=== PATIENT | male | born 1990 | race Caucasian/White ===

== ENCOUNTER 2017-11-10 18:00 | Outpatient (RCR) | payer OTHER, SELFPAY ==
--- NOTE | 2017-06-28 07:45 | HP.PTEVAL_ITS ---
Patient's Visit Information PRINCESS CARDENAS is a 27 year old M referred to Physical Therapy by DINA KINGSTON with a diagnosis of R hip labral repair. Date of Evaluation: 06/28/17 Physical Therapist: Trenton Bernard - Visit Plan Frequency: 2-3x /Week Duration: 12 weeks Plan: Start with bike, STM to rectus femoris/iliopsoas/glute med/piriformis/hip adductors, PROM, isometrics, NMES with SAQ, gait progression. Follow and progress per protocol. - Subjective Subjective: Pt. is here today for his initial evaluation with diagnosis of R hip larbal repair, osteoplasty. DOS 06/24/17. Pt. 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 Pt. reports being treated for lumbar disc herniations, and hip strengthening to no relief, finally resulting in hip labral repair. Pt. arrives today with cructches, applying minimal wt. through his RLE with hip TROm brace on limited to 90deg of flexion. Pt. reports trying to use game ready ice/vaso, but unbale to get it to work. Pt. denies N/T in either LE. Pt. was able to sleep in reclining chair last night, was unable to lie flat. Pt. has reports being very tired as he got back home from hospital last night. Pt. is hopeful to get back to all recreational activities including running, skiing, playing basketball and other sports without limitations. - Pain R anterior hip Pain Intensity (Out of 10): 4 Pain Intensity Range: 4, 8 - Objective POSTURE: Pt. is able to stand with minimal wt. shift to R side, general flexed posture with use of crutches. Pt. wt. shifts to L side while sitting as well. PALPATION: pt. has increased tenderness at psoas, rectus femoris, glute medius, and hip adductors. Pt. has incision covered, to keep on until tomorrow. NEUROLOGICAL: Pt. has normal sensation throughout bilateral LEs. Pt. has 2+ achilles and patellar DTR bilaterally. ROM: L hip- full ROM without increase in symptoms. R Hip- flexion 60deg increase NW, abd 30deg increase NW, ext neutral increase NW, ER 10deg increase NW, did not test IR. MMT: LLE 5/5 throughout; RLE- ankle 5/5 throughout; did not test knee or hip on R side secondary to surgery. GAIT: Pt. has normal gait pattern with crutches, but does ambulate with NWB on RLE. Pt. is able to negotiate 3 steps with 1 HR and crutches ZAIRE. - Goals Goal 1:: Pt. to be I with HEP. Goal Time Frame: 2 Weeks Goal 2:: Pt. to have increased R hip ROM to full without increase in symptoms. Goal Time Frame: 4-6 Weeks Goal 3:: Pt. to hve increased R hip/core strength to 4/5 to reduce stress applied to R hip with all functional mobility. Goal Time Frame: 6-8 Weeks Goal 4:: Pt. to sleep throughout the night without increase in symptoms. Goal Time Frame: 2-4 Weeks Goal 5:: Pt. ambulate with no AD without increase in symptoms. Goal Time Frame: 2-4 Weeks Goal 6:: Pt. to negotiate steps with proper pattern and control without increase in symptoms. Goal Time Frame: 2-4 Weeks - Rehabilitation Potential Physical Therapy Diagnosis: Pt. has signs and symptoms consistent with R hip labral repair with subsequent hypomobility, weakness, gait difficulty, and increased pain. Pt. would benefit from PT to address above limitations progressing back to recreational and work activities without limitations. Rehabilitation Potential: Excellent - Anticipated Interventions Patient/Client Instruction: Educate patient on: Condition, Plan of Care, Risk Factors, Benefits of Fitness Program For the Purpose of:: To improve decision making, To facilitate caregiver knowledge, To improve self management, To prevent re-injury, To improve ability to perform tasks related to life management, To improve tolerance to ADL's Therapeutic Exercise to Include: Strength training, Power training, Endurance training, Balance training, Agility training, Body mechanics, Postural training , Flexibilty training, Gait and locomotor training, Passive ROM, Active ROM, Dynamic Lumbar Stabilization For the Purpose of:: To decrease pain, To decrease swelling/inflammation, To increase ROM, To improve nutrient delivery to tissue, To increase oxygenation perfusion, To improve muscle performance and motor function, To improve ability to perform ADL's, To increase tolerance to activity/condition/position, To improve performance and independence with ADL's, To improve ability of physical actions for home/community/work/leisure, To improve gait and locomotor functions , To improve health of tissue, To decrease soft tissue restriction Manual Therapy Techniques to Include: Trigger point massage, Massage, Scar massage, Passive ROM For the Purpose of:: To decrease pain, To decrease swelling/inflammation, To increase ROM, To improve nutrient delivery to tissue, To increase oxygenation perfusion, To improve muscle performance and motor function IF ES: Yes Other electric stimulation: Yes - NMES quad activation Cryotherapy (ice pack, ice massage): Yes For the Purpose of:: To decrease pain, To decrease swelling/inflammation, To increase ROM, To improve nutrient delivery to tissue, To increase oxygenation perfusion, To improve muscle performance and motor function Thank you for the opportunity to evaluate your patient. For Medicare and Medicare HMO plans, please review the plan of care and approve it. It will need to be FAXED BACK to us at [phone] for Medicare purposes. Please let me know if there are questions or concerns regarding this plan of care. Physician Signature: Date:
--- NOTE | 2017-08-20 08:59 | HP.PTREVAL_ITS ---
DINA MARIN, It has been my pleasure to treat PRINCESS CARDENAS over the last 18 visits for R hip labral repair. Please see the progress note below for an update on the physical therapy plan of care! Subjective: Pt. reports I am doing much better. He is to follow up with his physician next week. Pt. reports being compliant with all stretching and walking progression. Objective/Function: R hip ROM- flexion 120deg mild pinching at end range, ext 20deg tightness noted, abd 45deg NE, ER 90deg tightness noted, IR 30deg mild increase NW. MMT- RLE- ankle 5/5 throughout; knee- ext 5/5, flexion 5/5; hip- flexion 4/5, abd 4/5, ext 4/5. Pt. has mild increase NW with hip flexion testing. GAIT: Pt. is able to ambulate with improved pattern, no antalgic pattern. Pt. reports no pain with walking. He has increased tempo. STARIS: Pt. is able to negotiate with reciporcal pattern without LOB or increase in symptoms. Plan Plan: Requesting extension of POC x2 per week for 4-6 weeks to progress strength and stability exsercises. Pt. was slightly delayed with progression of strenthening due to having increased anterior hip pain. Focused on stretching and deep tissue manual work and had good progress to now. He is now painfree and ready to progress further per protocol from physician. Goals Goal 1:: Pt. to be I with HEP. Goal Time Frame: 2 Weeks Goal Progress: Goal Met Goal 2:: Pt. to have increased R hip ROM to full without increase in symptoms. Goal Time Frame: 4-6 Weeks Goal Progress: Goal Met Goal 3:: Pt. to hve increased R hip/core strength to 4/5 to reduce stress applied to R hip with all functional mobility. NEW GOAL: progress strength to 5 /5 throughout R hip and core musculature to increase stability and reduce risk for future injuries. Goal Time Frame: 6-8 Weeks Goal Progress: Progressing Goal 4:: Pt. to sleep throughout the night without increase in symptoms. Goal Time Frame: 2-4 Weeks Goal Progress: Goal Met Goal 5:: Pt. ambulate with no AD without increase in symptoms. Goal Time Frame: 2-4 Weeks Goal Progress: Goal Met Goal 6:: Pt. to negotiate steps with proper pattern and control without increase in symptoms. Goal Time Frame: 2-4 Weeks Goal Progress: Goal Met Anticipated Interventions Patient/Client Instruction: Educate patient on: Condition, Plan of Care, Risk Factors, Benefits of Fitness Program For the Purpose of:: To improve decision making, To facilitate caregiver knowledge, To improve self management, To prevent re-injury, To improve ability to perform tasks related to life management, To improve tolerance to ADL's Therapeutic Exercise to Include: Strength training, Power training, Endurance training, Balance training, Agility training, Body mechanics, Postural training , Flexibilty training, Gait and locomotor training, Passive ROM, Active ROM, Dynamic Lumbar Stabilization For the Purpose of:: To decrease pain, To decrease swelling/inflammation, To increase ROM, To improve nutrient delivery to tissue, To increase oxygenation perfusion, To improve muscle performance and motor function, To improve ability to perform ADL's, To increase tolerance to activity/condition/position, To improve performance and independence with ADL's, To improve ability of physical actions for home/community/work/leisure, To improve gait and locomotor functions , To improve health of tissue, To decrease soft tissue restriction Manual Therapy Techniques to Include: Trigger point massage, Massage, Scar massage, Passive ROM For the Purpose of:: To decrease pain, To decrease swelling/inflammation, To increase ROM, To improve nutrient delivery to tissue, To increase oxygenation perfusion, To improve muscle performance and motor function IF ES: Yes Other electric stimulation: Yes - NMES quad activation Cryotherapy (ice pack, ice massage): Yes For the Purpose of:: To decrease pain, To decrease swelling/inflammation, To increase ROM, To improve nutrient delivery to tissue, To increase oxygenation perfusion, To improve muscle performance and motor function Please do not hesitate to contact me at [phone] by phone or Fax: if you have questions or concerns regarding this new plan of care! Sincerely, Trenton Bernard
--- NOTE | 2017-08-26 11:12 | HP.PTREVAL_ITS ---
DINA MARIN, It has been my pleasure to treat PRINCESS CARDENAS over the last 19 visits for R hip labral repair. Please see the progress note below for an update on the physical therapy plan of care! Subjective: Pt. reports I am doing much better. I saw the doctor today and they were pleased with my motion. They want me to start with strengthening again, but to ease into it. He reports overall being 75% better overall. He reports no pain with walking or with HEP. Objective/Function: Pt. is ambulating without AD, he has started a walking progression program to increase tolerance. He is still to refrain from impact movements. Pt. reports no pain with walking. STAIRS: Pt. negotiates with normal pattern withou use of HR to complete. No pain noted. ROM: hip- flexion 120deg mild pinching, ext 20deg NE, abd 50deg NE, ER 88deg mild soreness, IR 30deg mild pinching feeling. MMT: RLE- ankle 5/5 throughout; knee- ext 4+/5, flexion 4+/5; hip- flexion 4/5 mild increase NW, abd 4/5, ext 4/5. Core strength fair-. Plan Plan: Asking for extended POC x2 week for another 4 weeks to progress strengthening per protocol. Pt. was slightly delayed per protocol secondary to increased pain with strengthening. Held and focused on stretching and has improved. pt. would benefit from weaing into strengthening phase at this point in time. Goals Goal 1:: Pt. to be I with HEP. Goal Time Frame: 2 Weeks Goal Progress: Goal Met Goal 2:: Pt. to have increased R hip ROM to full without increase in symptoms. Goal Time Frame: 4-6 Weeks Goal Progress: Goal Met Goal 3:: Pt. to hve increased R hip/core strength to 4/5 to reduce stress applied to R hip with all functional mobility. NEW GOAL: progress strength to 5 /5 throughout R hip and core musculature to increase stability and reduce risk for future injuries. Goal Time Frame: 6-8 Weeks Goal Progress: Progressing Goal 4:: Pt. to sleep throughout the night without increase in symptoms. Goal Time Frame: 2-4 Weeks Goal Progress: Goal Met Goal 5:: Pt. ambulate with no AD without increase in symptoms. Goal Time Frame: 2-4 Weeks Goal Progress: Goal Met Goal 6:: Pt. to negotiate steps with proper pattern and control without increase in symptoms. Goal Time Frame: 2-4 Weeks Goal Progress: Goal Met Anticipated Interventions Patient/Client Instruction: Educate patient on: Condition, Plan of Care, Risk Factors, Benefits of Fitness Program For the Purpose of:: To improve decision making, To facilitate caregiver knowledge, To improve self management, To prevent re-injury, To improve ability to perform tasks related to life management, To improve tolerance to ADL's Therapeutic Exercise to Include: Strength training, Power training, Endurance training, Balance training, Agility training, Body mechanics, Postural training , Flexibilty training, Gait and locomotor training, Passive ROM, Active ROM, Dynamic Lumbar Stabilization For the Purpose of:: To decrease pain, To decrease swelling/inflammation, To increase ROM, To improve nutrient delivery to tissue, To increase oxygenation perfusion, To improve muscle performance and motor function, To improve ability to perform ADL's, To increase tolerance to activity/condition/position, To improve performance and independence with ADL's, To improve ability of physical actions for home/community/work/leisure, To improve gait and locomotor functions , To improve health of tissue, To decrease soft tissue restriction Manual Therapy Techniques to Include: Trigger point massage, Massage, Scar massage, Passive ROM For the Purpose of:: To decrease pain, To decrease swelling/inflammation, To increase ROM, To improve nutrient delivery to tissue, To increase oxygenation perfusion, To improve muscle performance and motor function IF ES: Yes Other electric stimulation: Yes - NMES quad activation Cryotherapy (ice pack, ice massage): Yes For the Purpose of:: To decrease pain, To decrease swelling/inflammation, To increase ROM, To improve nutrient delivery to tissue, To increase oxygenation perfusion, To improve muscle performance and motor function Please do not hesitate to contact me at [phone] by phone or Fax: if you have questions or concerns regarding this new plan of care! Sincerely, Trenton Bernard
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
== END 2017-11-10 19:00 | disposition home or self-care (01) ==
LOC: PT 18:00
DX: M25.551 Pain in right hip (principal)
CPT/HCPCS: 97012; 97014; 97110; 97140; 97161; 97530; G0283; G8978; G8979

== ENCOUNTER 2021-04-05 12:11 | Emergency (ER) | payer OTHER, SELFPAY ==
[2021-04-05 12:12] VITALS: BP 146/95; PULSE 72; RESP 16; TEMP 36.3; O2SAT 99; BMI 19.0
--- NOTE | 2021-04-05 12:55 | CT_ITS ---
STUDY: MRA OF THE HEAD WITHOUT CONTRAST REASON FOR EXAM: Male, 30 years old. headache. headache TECHNIQUE: 3-D [id number] (TOF) imaging was performed with MIPs. The study was performed unenhanced. COMPARISON: None. FINDINGS: Patent right cavernous carotid artery. Patent left cavernous carotid artery. Patent right A1 segments of the anterior cerebral artery. Patent left A1 segments of the anterior cerebral artery. Unremarkable anterior communicating artery (ACOM) region. Normal bilateral A2 segments of the anterior cerebral arteries. Patent right M1 and M2 segments of the middle cerebral arteries, with a unremarkable M1 bifurcation. Patent left M1 and M2 segments of the middle cerebral arteries, with a unremarkable M1 bifurcation. There is non-visualization of the right posterior communicating artery (PCOM). 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 Patent basilar artery with a normal basilar bifurcation. Patent bilateral posterior cerebral arteries. STUDY: CT BRAIN WITHOUT CONTRAST Normal size ventricles and extra-axial spaces for the patient''s age. There is no intracranial hemorrhage. There are no findings of an acute ischemic infarction. CT/CTA Head W/WO Contrast IMPRESSION: No no demonstrated large vessel occlusion or aneurysm. Electronically Signed: Gilbert Buenrostro MD at 13:43 EST Tel , Service support ,
[2021-04-05] MEDS: 0.9% Normal Saline 1,000 ML 999 ML IV (13:21)
[2021-04-05] MEDS: DiphenhydrAMINE 50 MG/ML Syringe 25 MG IV (13:21)
[2021-04-05] MEDS: Metoclopramide 10 MG/2 ML Vial IV (13:21)
--- NOTE | 2021-04-05 13:25 | EX.ED.DYSGE1 ---
HPI History of Present Illness Chief Complaint: Numb/Ting Narrative Narrative: Patient presents with headache. Before the headache he had an aura of feeling dizzy and then having some numbness on the left side of the face and hand. He has similar episode a few months ago but otherwise he has not had a history of migraines. The headache that started today was gradual onset, it was not sudden. Currently there is no vision changes but there is some photophobia. No neck pain or stiffness. No fevers or chills. No trauma. No weakness or paresthesias currently. [facility] Medical History Bulging lumbar disc Labral tear of right hip joint Right bundle branch block Home Medications NK 04/05/21 [History Last Taken Unknown] Allergy/AdvReac Type Severity Reaction Status Date / Time No Known Allergies Allergy Verified 04/05/21 12:23 Social History Smoking Status: Never smoker ROS ROS ED ROS Narrative Past medical history: Reviewed Medications: Reviewed Social history: Noncontributory Review of systems: All systems negative except as indicated General: No fever Eyes: No visual changes ENT: No upper airway congestion, normal voice Neck: No neck pain Cardiovascular: No chest pain Respiratory: No shortness of breath or cough Gastrointestinal: No abdominal pain, nausea vomiting or diarrhea Genitourinary: No dysuria Musculoskeletal: Denies myalgias no difficulty with ambulation Skin: No rash Neurological: No memory loss, confusion or any focal weakness. Headache as in HPI Psych: No recent behavioral changes Hematologic: No easy bleeding or easy bruising EXAM Physical Exam Narrative Exam Narrative: Physical exam General: Patient appears relatively comfortable. Head: Normocephalic, Atraumatic Eyes: Conjunctiva not pale ENT: Moist mucous membranes Neck: Supple, Nontender, No lymphadenopathy Cardiovascular: Regular rate, Regular rhythm Respiratory: No distress, CTA bilaterally Abdomen: Soft, Nontender, Nondistended Back: Nontender, Normal Inspection. Negative for: CVA tenderness Extremities: Nontender, No edema Skin: Normal color, No rash Neurological: Alert, Normal Strength, Normal Sensation Psychological: Normal affect Const Vital Signs: 04/05/21 12:12 04/05/21 15:00 Temperature 97.3 F L Temperature Source Temporal Pulse Rate 72 Respiratory Rate 16 18 Blood Pressure 146/95 H Blood Pressure Mean 112 Pulse Ox 99 Oxygen Delivery Method Room Air MDM MDM Radiography Diagnostic Testing: Clinical Impression(s) from Imaging Studies Head CTA 04/05/21 12:55 IMPRESSION: No no demonstrated large vessel occlusion or aneurysm. Electronically Signed: Gilbert Buenrostro MD at 13:43 EST Tel , Service support , Discharge Plan Triage Chief Complaint: Numb/Ting ED Provider: Tao Bosch Dx/Rx/DC Orders Clinical Impression: Headache, Aura Instructions: Understanding Headache Pain Prescriptions: No Action NK RF: 0 [facility] Care Provider: [facility] Referrals: [facility] [Primary Care Provider] - 2 Days Disposition Disposition: Home, Self Care
[2021-04-05 15:00] VITALS: RESP 18
[2021-04-05 15:34] VITALS: BP 108/67; PULSE 71; RESP 15; O2SAT 99
== END 2021-04-05 15:34 | disposition home or self-care (01) ==
PROVIDERS: Emergency Provider Emergency Medicine
DX: R51.9 Headache, unspecified (principal); R42 Dizziness and giddiness; R20.0 Anesthesia of skin
CPT/HCPCS: 70496; 96361; 96374; 96375; 99282; J7030; Q9967; A4216

== ENCOUNTER 2021-06-27 09:00 | Outpatient (RCR) | payer OTHER, SELFPAY ==
--- NOTE | 2021-02-07 14:00 | HP.PTEVAL ---
Patient's Visit Information PRINCESS CARDENAS is a 30 year old M referred to Physical Therapy by [facility] with a diagnosis of R hip pain S/p Arthroscopic clean up scar tissue. Date of Evaluation: 02/07/21 Physical Therapist: MARYURI Hernandez - Visit Plan Frequency: 2-3x /Week Duration: 5 weeks Plan: 2-3X/ week for 15 visits R hip AROM, AAROM, light stretching, strengthening, gait training, functional activities such as step, increase proprioception with HEP. HEP: GS, Heels slides, QS, ankle pumps - Subjective Pt had a R hip labral repair June 2016.... 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 MRI and thought it was torn but then a new surgeon thought it was old scar tissue, In Surgery they cleaned up scar tissue and it was attached to the labrum and making him feel like his labrum was tearing again. He had surgery yesterday. He is supposed to be active as he can and he needs his incision to heal up. Once he is ready he is able to put full weight on it. Pt reports that he has not put much pressure through his R leg and still using the crutches so he can not rate his pain in WB. He has 2 steps without a railing though the garage and just uses crutches. His bed is on first floor. No plans on return to work. - Pain R hip pain Pain Intensity (Out of 10): 5 Pain Intensity Range: 5 - Objective Gait: Walks with 2 crutches with decrease weight bearing on the R LE. LE MMT: R knee ext 3-/5,. L knee ext 4+/5,. R knee flexion 3-. L knee flexion4+. MMT of the R hip was not tested. Sit to stand pt need UE to help get to standing. Pt needed to use his UE to help get his R leg up onto the mat table. R knee flexion 100 degrees. R hip flexion to 70 degrees. Pt has increased pain with sitting... feels like it is pinching him in the groin. At the end of the session pt was able to walk with 2 crutches with increase WB on the R LE with heel to toe gait pattern. - Balance/Special Test Scores Lower Extremity Functional Score: 3 - Goals Goal 1:: I HEP Goal Time Frame: 4-6 Weeks Goal 2:: Be able to walk without AD with normal gait pattern Goal Time Frame: 4-6 Weeks Goal 3:: Be able to go up and down the steps recip with no hand railing with no antalgic gait. Goal Time Frame: 4-6 Weeks Goal 4:: Increase R hip strength (flex and abd, and ext) to 4/5 Goal Time Frame: 4-6 Weeks Goal 5:: Demonstrate 120 degrees R hip flex and 30 degrees hip ext by D/C painfree Goal Time Frame: 4-6 Weeks - Rehabilitation Potential Rehabilitation Potential: Good - Anticipated Interventions Patient/Client Instruction: Educate patient on: Condition, Plan of Care For the Purpose of:: To decrease pain, To increase ROM, To improve nutrient delivery to tissue, To improve muscle performance and motor function, To improve ability to perform ADL's, To increase tolerance to activity/condition/position, To improve performance and independence with ADL's, To decrease level of supervision to perform tasks, To improve ability of physical actions for home/community/work/leisure, To improve gait and locomotor functions, To improve health of tissue, To decrease soft tissue restriction, To increase flexibility/ROM, To improve endurance, To improve balance Therapeutic Exercise to Include: Strength training, Endurance training, Balance training, Body mechanics, Postural training, Flexibilty training, Gait and locomotor training, Neuromotor development, Passive ROM, Active ROM, Dynamic Lumbar Stabilization For the Purpose of:: To decrease pain, To decrease swelling/inflammation, To increase ROM, To improve nutrient delivery to tissue, To improve muscle performance and motor function, To improve ability to perform ADL's, To increase tolerance to activity/condition/position, To improve performance and independence with ADL's, To decrease level of supervision to perform tasks, To improve ability of physical actions for home/community/work/leisure, To improve gait and locomotor functions, To improve health of tissue, To decrease soft tissue restriction, To increase flexibility/ROM, To improve endurance, To improve balance, To improve safety with gait Functional Training to Include: Gait training For the Purpose of:: To improve gait and locomotor functions Manual Therapy Techniques to Include: Passive ROM For the Purpose of:: To increase ROM Thank you for the opportunity to evaluate your patient. For Medicare and Medicare HMO plans, please review the plan of care and approve it. It will need to be FAXED BACK to us at [phone] for Medicare purposes. For Medicare only, by signing this I certify the plan of care. Please let me know if there are questions or concerns regarding this plan of care. Physician Signature: Date:
--- NOTE | 2021-03-18 07:54 | HP.PTREVAL_ITS ---
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 Please see the progress note below for an update on the physical therapy plan of care! Subjective: Pt reports that going up stairs is still hard due to catching in the hip joint. Squatting increases pressure in his Quad. Objective/Function: Gait: walks with normal gait pattern\. Walks with high knees... very cautious with movement into hip flex on the R with each rep. Stairs: up and down recip with 1 hand rail wtih complaints of tightness of R Quad. SLB 30 second on the R. SLB with knee bent 30 seconds but increase complaint of tightness at 20 seconds. MMT: R hip flex 4-/5 (with shooting pain in his groin), R hip abd 4/5, hip ext 5/5, knee flex and ext 4+/5. 114 degrees R hip flexion (increase pinching of the R groin). After SKC holding 5 sec X 20 pt was stiff extending his leg Plan Plan: Ask for additional visits. 2-3 X/ week for improving R hip flexion ROM, hip flex strengthening and hip strength in general, stretching with HEP. Pt to also continue with HEP Balance/Gait/Functional tests - Balance/Special Test Scores Lower Extremity Functional Score: 33 Goals Goal 1:: I HEP Goal Time Frame: 4-6 Weeks Goal Progress: Goal Met Goal 2:: Be able to walk without AD with normal gait pattern Goal Time Frame: 4-6 Weeks Goal Progress: Goal Met Goal 3:: Be able to go up and down the steps recip with no hand railing with no antalgic gait. Goal Time Frame: 4-6 Weeks Goal Progress: Goal Met Goal 4:: Increase R hip strength (flex and abd, and ext) to 4/5 Goal Time Frame: 4-6 Weeks Goal Progress: Progressing Goal 5:: Demonstrate 120 degrees R hip flex and 30 degrees hip ext by D/C painfree Goal Time Frame: 4-6 Weeks Goal Progress: Progressing Anticipated Interventions Patient/Client Instruction: Educate patient on: Condition, Plan of Care For the Purpose of:: To decrease pain, To increase ROM, To improve nutrient delivery to tissue, To improve muscle performance and motor function, To improve ability to perform ADL's, To increase tolerance to activity/condition/position, To improve performance and independence with ADL's, To decrease level of supervision to perform tasks, To improve ability of physical actions for home/community/work/leisure, To improve gait and locomotor functions, To improve health of tissue, To decrease soft tissue restriction, To increase flexibility/ROM, To improve endurance, To improve balance Therapeutic Exercise to Include: Strength training, Endurance training, Balance training, Body mechanics, Postural training, Flexibilty training, Gait and locomotor training, Neuromotor development, Passive ROM, Active ROM, Dynamic Lumbar Stabilization For the Purpose of:: To decrease pain, To decrease swelling/inflammation, To increase ROM, To improve nutrient delivery to tissue, To improve muscle performance and motor function, To improve ability to perform ADL's, To increase tolerance to activity/condition/position, To improve performance and independence with ADL's, To decrease level of supervision to perform tasks, To improve ability of physical actions for home/community/work/leisure, To improve gait and locomotor functions, To improve health of tissue, To decrease soft tissue restriction, To increase flexibility/ROM, To improve endurance, To improve balance, To improve safety with gait Functional Training to Include: Gait training For the Purpose of:: To improve gait and locomotor functions Manual Therapy Techniques to Include: Passive ROM For the Purpose of:: To increase ROM Please do not hesitate to contact me at [phone] by phone or if you have questions or concerns regarding this new plan of care! Sincerely, MARYURI Hernandez
--- NOTE | 2021-06-27 09:57 | HP.PTREVAL ---
[facility], It has been my pleasure to treat PRINCESS CARDENAS over the last 30 visits for R hip pain S/p Arthroscopic clean up scar tissue 02-06-21. Please see the progress note below for an update on the physical therapy plan of care! Subjective: Pt reports he was doing really well until he started work again. Now the pain has returned. 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 R hip strength: flex= 4-/5, abd= 5/5, add= 4/5, ext= 5/5. R hip flex ROM: 98 degrees. Pt is still showing good progress, but lacks fonctional strength and ROM still. Plan Plan: Attempt to get 12 more visits approved to focus on strength and ROM of the R hip Balance/Gait/Functional tests - Balance/Special Test Scores Lower Extremity Functional Score: 49 Goals Goal 1:: I HEP Goal Time Frame: 4-6 Weeks Goal Progress: Goal Met Goal 2:: Be able to walk without AD with normal gait pattern Goal Time Frame: 4-6 Weeks Goal Progress: Goal Met Goal 3:: Be able to go up and down the steps recip with no hand railing with no antalgic gait. Goal Time Frame: 4-6 Weeks Goal Progress: Goal Met Goal 4:: Increase R hip strength (flex and abd, and ext) to 4/5 Goal Time Frame: 4-6 Weeks Goal Progress: Progressing Goal 5:: Demonstrate 120 degrees R hip flex and 30 degrees hip ext by D/C painfree Goal Time Frame: 4-6 Weeks Goal Progress: Progressing Anticipated Interventions Patient/Client Instruction: Educate patient on: Condition, Plan of Care For the Purpose of:: To decrease pain, To increase ROM, To improve nutrient delivery to tissue, To improve muscle performance and motor function, To improve ability to perform ADL's, To increase tolerance to activity/condition/position, To improve performance and independence with ADL's, To decrease level of supervision to perform tasks, To improve ability of physical actions for home/community/work/leisure, To improve gait and locomotor functions, To improve health of tissue, To decrease soft tissue restriction, To increase flexibility/ROM, To improve endurance, To improve balance Therapeutic Exercise to Include: Strength training, Endurance training, Balance training, Body mechanics, Postural training, Flexibilty training, Gait and locomotor training, Neuromotor development, Passive ROM, Active ROM, Dynamic Lumbar Stabilization For the Purpose of:: To decrease pain, To decrease swelling/inflammation, To increase ROM, To improve nutrient delivery to tissue, To improve muscle performance and motor function, To improve ability to perform ADL's, To increase tolerance to activity/condition/position, To improve performance and independence with ADL's, To decrease level of supervision to perform tasks, To improve ability of physical actions for home/community/work/leisure, To improve gait and locomotor functions, To improve health of tissue, To decrease soft tissue restriction, To increase flexibility/ROM, To improve endurance, To improve balance, To improve safety with gait Functional Training to Include: Gait training For the Purpose of:: To improve gait and locomotor functions Manual Therapy Techniques to Include: Passive ROM For the Purpose of:: To increase ROM Please do not hesitate to contact me at [phone] by phone or if you have questions or concerns regarding this new plan of care! Sincerely, Enrique Palafox, PT, ATC
== END 2021-06-27 19:00 | disposition home or self-care (01) ==
LOC: PT 09:00
DX: M25.551 Pain in right hip (principal)
CPT/HCPCS: 97110; 97161; 97164; 97530